=== PATIENT | male | born 1980 ===

== ENCOUNTER 2019-01-31 10:17 | Emergency (ER) | payer OTHER ==
[2019-01-31] MEDS ORDERED: Sodium Chloride 0.9% 1,000 ML IV ONE (10:25)
[2019-01-31] MEDS ORDERED: Sodium Chloride 0.9% 500 ML IV SCH (10:30)
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
--- NOTE | 2019-01-31 11:05 | CR ---
INDICATION: Seizure. TECHNIQUE: Portable upright AP view of the chest. COMPARISON: None. FINDINGS: Cardiac, mediastinal and hilar contours are within normal limits. Pulmonary vasculature is unremarkable. Lungs are clear. No pleural fluid or pneumothorax. No acute osseous abnormality. IMPRESSION: No signs of acute thoracic disease. Dictated by Lb Bethea MD @ 01/31/2019 11:03:01 AM Dictated by: Lb Bethea MD @ 01/31/2019 11:03:07 (Electronically Signed)
[2019-01-31 11:10] LABS: CHLORIDE,CL 104 mmol/L (98-107); SODIUM,NA 140 mmol/L (136-148)
--- NOTE | 2019-01-31 11:23 | CT ---
Indication: Seizure Technique: CT of the head without contrast. Coronal and sagittal reformatted images. Bone and soft tissue algorithms. Comparison: No prior studies available for comparison at this institution. Findings: No acute intracranial hemorrhage or extra-axial collection. No evidence of acute cortical infarction. No mass effect or midline shift. Normal cerebral volume. The ventricles are normal in size, shape and contour. There is normal rosario and white matter differentiation. The orbital contents are normal. Paranasal sinuses are well aerated. Mastoid air cells are clear. No calvarial fractures. No lytic or sclerotic osseous lesions within the calvarium or skull base. Scalp and other imaged soft tissue structures are normal. Impression: No acute intracranial abnormality. Please note that all CT scans at this facility use dose modulation, iterative reconstruction, and/or weight-based dosing when appropriate to reduce radiation dose to as low as reasonably achievable. Dictated by Anderson Armenta MD @ Jan 31 2019 11:19AM Signed by Dr. Anderson Armenta @ Jan 31 2019 11:21AM
[2019-01-31] MEDS ORDERED: LORazepam 2 MG/ML SDV IVPUSH ONE (12:03)
[2019-01-31] MEDS ORDERED: LORazepam 2 MG/ML SDV ONE (12:03)
--- NOTE | 2019-01-31 12:36 | CR ---
INDICATION: Pain. Seizure. TECHNIQUE: AP pelvis. FINDINGS: No fracture or dislocation involving the pelvis or either hip. No significant abnormalities. Dictated by Loki Alvarado MD @ Jan 31 2019 12:35PM Signed by Dr. Loki Alvarado @ Jan 31 2019 12:35PM
--- NOTE | 2019-01-31 12:38 | CT ---
INDICATION: Pain. TECHNIQUE: Noncontrast axial images through the lumbar spine with sagittal and coronal reconstructions. COMPARISON: None. FINDINGS: Normal curvature and alignment of the lumbar spine. No fracture or destructive bony lesion. There is mild to moderate disc space narrowing seen at the L4-5 level with minor endplate degenerative spurring. There is circumferential disc bulging at this level. Also noted at this level is a left lateral recess disc extrusion, with cranial migration of disc material extending for approximately 1 cm above the inferior endplate of L4. On axial image 64 of series 202, the disc extrusion measures approximately 1.2 cm in transverse dimension by 0.6 cm in AP dimension, and results in severe narrowing of the lateral recesses. Correlate for left L5 symptoms. The disc extrusion also comes in close proximity to the exiting left L4 nerve root. Correlation with L4 symptoms is also recommended. The remainder of the intervertebral spaces appear unremarkable. Facet joints are unremarkable. 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 Correlate for both left L4 and L5 radiculopathy/symptoms. Dictated by Lb Bethea MD @ 01/31/2019 12:35:42 PM Please note that all CT scans at this facility use dose modulation, iterative reconstruction, and/or weight-based dosing when appropriate to reduce radiation dose to as low as reasonably achievable. Dictated by: Lb Bethea MD @ 01/31/2019 12:36:36 (Electronically Signed)
[2019-01-31] MEDS ORDERED: diphenhydrAMINE 50 MG/ML SDV IVPUSH ONE (13:15)
[2019-01-31] MEDS ORDERED: methylPREDNISolone Sodium Succinate 125 MG/2 ML SDV IVPUSH ONE (13:16)
[2019-01-31] MEDS ORDERED: Sodium Chloride 0.9% 1,000 ML IV SCH (13:30)
== END 2019-01-31 13:30 ==
LOC: MW.ED 10:17
DX: G40.909 Epilepsy, unspecified, not intractable, without status epilepticus (principal); R41.82 Altered mental status, unspecified; Z88.8 Allergy status to other drugs, medicaments and biological substances
CPT/HCPCS: 36415; 70450; 71045; 72131; 72170; 80053; 80305; 81001; 84146; 84484; 85025; 93005; 96361; 96365; 96375; 99285; J1165; J1200; J2060; J2930; J7040; J7050; 99284